=== PATIENT | female | born 1940 | race Caucasian/White ===

== ENCOUNTER → 2023-07-29 | Outpatient (CLI) | payer MEDICARE, OTHER ==
[~2023-07-29] MED LIST: ATOR1TAB19 PO; AZIT-12; B-12100T2 PO; BIMA01SOL OU; CALC-190 PO; EQLTAB18 PO; FAMO10TA50 PO; FISH1000 PO; GABA-1171 PO; IPRA6SP NARES; LEVO50TA5 PO; LIDO30CR18 TOP; MAGICMW MT; METO1TAB87 PO; METO25TA4 PO; NEUR100C PO; NYST-38 PO; OMEG10002 PO; ONDA-84 PO; PANT40TA29 PO; PARO5TAB PO; PROC10TA5 PO; PYRI25TA2 PO; REST0.057 OU; ROBILIQ13 PO; TRAM50TA2 PO; XIID5DRO; [UNRECOGNIZED DRUG - CODE] PO; magic mouthwash PO
[2023-07-29 14:15] LABS: BASO % 0.5 % (0.0-1.0); EOS # 0.1 10^3/uL (0.0-0.5); EOS % 0.9 % (0.0-3.0); HEMATOCRIT 40.8 % (36.0-47.0); HEMOGLOBIN 13.4 g/dl (12.0-15.5); LYMPH # 2.9 10^3/uL (1.5-5.0); LYMPH % 44.1 % (24.0-44.0); MEAN CORPUSCULAR HEMOGLOBIN 30.9 pg (27.0-33.0); MEAN CORPUSCULAR HGB CONC 32.8 g/dl (32.0-36.5); MONO # 0.5 10^3/uL (0.0-0.8); MONO % 7.9 % (2.0-8.0); NEUTROPHILS # 3.1 10^3/uL (1.5-8.5); NEUTROPHILS % 46.3 % (36.0-66.0); PLATELET COUNT, AUTOMATED 190 10^3/uL (150-450); RED BLOOD COUNT 4.34 10^6/uL (4.00-5.40); WHITE BLOOD COUNT 6.6 10^3/uL (4.0-10.0)
[2023-07-29 14:36] LABS: ERYTHROCYTE SEDIMENTATION RATE 23 mm/hr (0-30)
[2023-07-29 14:39] LABS: ALBUMIN 4.1 G/DL (3.2-5.2); ALKALINE PHOSPHATASE 69 U/L (46-116); ALT/SGPT 19 U/L (7.0-40); AST/SGOT 21 U/L (<34); BILIRUBIN,TOTAL 0.8 MG/DL (0.3-1.2); BLOOD UREA NITROGEN 16 MG/DL (9-23); CALCIUM LEVEL 9.2 MG/DL (8.3-10.6); CARBON DIOXIDE LEVEL 29 MMOL/L (20-31); CHLORIDE LEVEL 102 MMOL/L (98-107); CREATININE FOR GFR 0.86 MG/DL (0.55-1.30); GLOMERULAR FILTRATION RATE > 60.0 (>32); GLUCOSE, FASTING 84 MG/DL (74-106); POTASSIUM SERUM 3.9 MMOL/L (3.5-5.1); SODIUM LEVEL 136 MMOL/L (136-145); THYROXINE (T4) 9.4 UG/DL (4.5-10.9)
[2023-07-29 14:40] LABS: THYROID STIMULATING HORMONE 3.335 uIU/ML (0.55-4.78)
[2023-07-29 14:41] LABS: FOLATE > 24.0 NG/ML (>5.4); FREE THYROXINE INDEX 3.4 % (1.3-4.8); T UPTAKE 36.2 % (22.5-37.0); VITAMIN B12 LEVEL 814 PG/ML (211-911)
== END ==
LOC: M PLALAB 11:27
PROVIDERS: ATTEND Psychiatry & Neurology Neurology
DX: E07.9 Disorder of thyroid, unspecified (principal)